=== PATIENT | female | born 1935 | race Caucasian/White ===

== ENCOUNTER → 2019-04-13 09:21 | Outpatient (CLI) | payer MEDICARE, SELFPAY ==
--- NOTE | 2019-04-13 09:29 | RAD_ITS ---
STUDY: X-RAY CHEST REASON FOR EXAM: Female, 83 years old. Dyspnea and wheezing TECHNIQUE: PA and lateral COMPARISON: June 14, 2011 FINDINGS: Mild bilateral perihilar interstitial thickening.. There is focal consolidation in the right middle lobe. There is blunting of the costophrenic angles likely representing pleural thickening although tiny effusions are not excluded Heart is mildly enlarged.. Normal mediastinum and varghese. Normal visualized pulmonary arteries. Tortuous mildly calcified aortic arch and descending thoracic aorta. Dorsal spine demonstrates moderate spondylosis Normal visualized ribs, clavicles, and shoulders. There is no demonstrated abnormality of the visualized soft tissue structures of the upper abdomen. The right middle lobe consolidation is new finding since prior study RAD/Chest PA and Lateral IMPRESSION: Chronic interstitial changes and right middle lobe atelectasis or infiltrate.. Cannot exclude tiny bilateral effusions versus pleural thickening Electronically Signed: Pavan Foster MD at 17:08 EDT , Service support ,
== END ==
PROVIDERS: Family Provider Family Medicine; PCP Family Medicine; Referring Provider Internal Medicine Pulmonary Disease; Visit Provider Internal Medicine Pulmonary Disease
DX: R06.2 Wheezing (principal); R06.00 Dyspnea, unspecified
CPT/HCPCS: 36415; 71046; 83880

== ENCOUNTER → 2019-05-14 05:58 | Outpatient (CLI) | payer MEDICARE, SELFPAY ==
[2019-05-04 11:26] VITALS: BMI 32.5
--- NOTE | 2019-05-15 13:56 | STRESSREP_ITS ---
Stress Test Report Date: 05/14/2019 Procedure: Pharmacologic stress nuclear imaging study Indications: LV dysfunction Consent: Per the patient Procedure: The patient underwent pharmacologic (Regadenoson) evaluation with a peak heart rate of 99 beats per minute (72 %predicted maximal heart rate) and a peak blood pressure of 108/58 mmHg. The baseline ECG demonstrated sinus rhythm. EKG during lexiscan infusion revealed no significant change from baseline. EKG post infusion revealed difficult change from baseline [There were no cardiac dysrhythmias pretest, during pharmacologic infusion, or recovery]. [There was no complaint of chest discomfort during pharmacologic infusion or recovery]. The examination was discontinued secondary to completion of protocol. Impression: 1. Lexiscan stress test test is negative for Lexiscan infusion induced EKG changes of ischemia. 2. Lexiscan stress test test is negative for Lexiscan infusion induced chest pain. 3. Results of the nuclear portion of the test is as below Myocardial perfusion imaging study: Technique: The patient was injected with 10 millicuries of technetium 99m Cardiolite and subsequently rest SPECT Cardiolite nuclear imaging was obtained in the horizontal long, vertical long, and short axis views. The patient underwent pharmacologic (Regadenoson) evaluation. Please see above for details. The patient was injected with the millicuries of technetium 99m Cardiolite and subsequently stress SPECT Cardiolite nuclear imaging was obtained in the horizontal long, vertical long, and short axis views. A gated Cardiolite study at peak stress was obtained. Interpretation: Rest and stress SPECT Cardiolite nuclear imaging status post realignment, normalization, and attenuation correction demonstrate mild decrease in the radioisotope uptake in the apex on both the rest and stress images. There is no significant reversibility suggestive of ischemia. Gated images reveal global hypokinesis. The reported LVEF is 29 %. Impression: 1. There is no evidence of significant ischemia. 2. Estimated ejection fraction is 29%. This note was generated with [employer] software. It may contain incorrect words, spelling, and punctuation that were not noted in checking the note before signing.
== END ==
PROVIDERS: Family Provider Family Medicine; PCP Family Medicine; Referring Provider Specialist; Visit Provider Specialist
DX: I50.22 Chronic systolic (congestive) heart failure (principal)
CPT/HCPCS: 78452; 93017; A9500; A4216; J2785

== ENCOUNTER → 2019-08-11 08:49 | Outpatient (CLI) | payer MEDICARE, SELFPAY ==
[2019-06-09 10:55] VITALS: BMI 33.6
--- NOTE | 2019-08-11 08:51 | ECHOD_ITS ---
Reason For Study: CHF Procedure This was a 2D Doppler, Color Flow transthoracic echocardiogram. Exam performed in department. Left Ventricle Moderately dilated left ventricle. The estimated ejection fraction is 15 %. There is evidence of diastolic dysfunction. There is severe global hypokinesis of the left ventricle. Right Ventricle Normal RV size. Normal systolic function. Atria The left atrium is severely enlarged. Normal right atrium. No doppler evidence for ASD. Mitral Valve There is no mitral valve stenosis. Trivial mitral valve insufficiency. Tricuspid Valve There is no tricuspid stenosis. Unable to estimate RV systolic pressure due to insufficient tricuspid regurgitant envelope. Aortic Valve Trisinus/trileaflet aortic valve. There is no aortic stenosis. Trivial aortic valve insufficiency. Pulmonic Valve There is no pulmonic valvular stenosis. Trivial pulmonic valve insufficiency identified. Great Vessels Normal aortic root. Pericardium/Pleural No pericardial effusion. MMode/2D Measurements & Calculations LVIDd: 7.6 cm IVSd: 1.2 cm Ao root diam: 3.2 cm LVIDs: 6.9 cm LVPWd: 1.2 cm RVDd: 3.8 cm FS: 9.3 % LAV(MOD-bp): 110.6 ml EDV(MOD-sp4): 161.0 ml EDV(MOD-sp2): 236.0 ml LAV(MOD-bp) Indexed: 57.1 ml/m2 ESV(MOD-sp4): 127.8 ml EF(MOD-sp2): 22.3 % LAV(MOD-sp2): 104.8 ml EF(MOD-sp4): 20.6 % LAV(MOD-sp4): 107.5 ml SV(MOD-sp4): 33.2 ml SV(MOD-sp2): 52.7 ml LA A4 area: 27.0 cm2 LA dimension(2D): 5.1 cm RA A4 area: 13.8 cm2 Time Measurements MV dec time: 0.11 sec Doppler Measurements & Calculations MV E max ellen: 92.0 cm/sec Ao V2 max: 155.5 cm/sec AI max ellen: 397.0 cm/sec MV A max ellen: 67.2 cm/sec Ao max P.7 mmHg AI max P.0 mmHg MV E/A: 1.4 Ao V2 mean: 115.0 cm/sec Ao mean P.7 mmHg AI dec slope: 319.0 cm/sec2 Ao V2 VTI: 28.1 cm AI P1/2t: 364.5 msec LV V1 max: 81.5 cm/sec MR max ellen: 489.9 cm/sec PA V2 max: 80.6 cm/sec LV V1 max P.7 mmHg MR max P.0 mmHg LV V1 mean P.5 mmHg LV V1 mean: 58.1 cm/sec LV V1 VTI: 13.3 cm Interpretation Summary Moderately dilated left ventricle. The estimated ejection fraction is 15 %. There is evidence of diastolic dysfunction. There is severe global hypokinesis of the left ventricle. The left atrium is severely enlarged. Trivial mitral valve insufficiency. Trivial aortic valve insufficiency. Trivial pulmonic valve insufficiency identified. Ordering Physician: Elodia Hunt Referring Physician: Sj Guan Performed By: Shobha Schmidt RDCS, RVT
== END ==
PROVIDERS: Family Provider Family Medicine; PCP Family Medicine; Referring Provider Specialist; Visit Provider Specialist
DX: I25.10 Atherosclerotic heart disease of native coronary artery without angina pectoris (principal); I50.9 Heart failure, unspecified
CPT/HCPCS: 93306

== ENCOUNTER → 2019-10-01 15:00 | Outpatient (CLI) | payer MEDICARE, SELFPAY ==
[2019-09-08 10:53] VITALS: BMI 33.5
[2019-10-01 15:09] LABS: Bacteria 0 SEEN /hpf (None Seen); Mucous, Urine 0 SEEN /hpf (<or=2+); White Blood Cells 0 SEEN /hpf (0-5)
[2019-10-01 15:28] LABS: Hematocrit 43.3 % (37-47); Hemoglobin 13.9 g/dL (12.0-15.0); Mean Corp Hgb Conc 32.1 g/dL (32-36); Mean Corpuscular Hgb 28.4 pg (27.0-32.0); Mean Corpuscular Volume 88.5 fL (81-99); Platelet Count 190 K/mm3 (150-450); RBC Distribution Width CV 13.2 % (11.6-14.6); RBC Distribution Width SD 43.1 fl (35.1-43.9); Red Blood Count 4.89 M/mm3 (4.2-5.4); White Blood Count 7.5 K/mm3 (4.4-11.0)
[2019-10-01 15:39] LABS: Color, Urine Yellow (Yellow); Glucose, Dipstick Normal (Normal); Ketone-Dipstick Negative (Negative); Leukocyte Esterase-Dipstick Negative /ul (Negative); Nitrite-Dipstick Negative (Negative); Occult Blood-Urine Negative /ul (Negative); Protein-Dipstick Negative (Negative); Urine Bilirubin Dipstick Negative (Negative); Urine Clarity Clear (Clear); Urine Urobilinogen Normal (Normal)
[2019-10-01 15:45] LABS: Prothrombin Time (Protime)PT. 13.4 SECONDS (11.7-14.9)
[2019-10-01 16:16] LABS: Anion Gap 7 (5-15); BUN 17 mg/dL (7-18); BUN/Creat Ratio 18.3 RATIO (10-20); Chloride 100 mmol/L (98-107); Creatinine, Serum 0.93 mg/dL (0.55-1.02); EST Glomerular Filtration Rate 61 mL/min (>60); Est Glom Filt Rate - Afr Amer 74 mL/min (>60); Glucose 105 mg/dL (74-106); Potassium 3.8 mmol/L (3.5-5.1); Sodium Level 134 mmol/L (136-145)
[2019-10-01 16:23] LABS: Squamous Epithelial Cells - UA 0-5 SEEN /hpf (5-10)
[2019-10-01 16:24] LABS: Red Blood Cells-Urine 0-5 SEEN /hpf (0-5)
[2019-10-01 16:26] LABS: Renal Epithelial Cells 0-5 SEEN /hpf (0-5)
== END ==
PROVIDERS: PCP Family Medicine; Referring Provider Specialist; Visit Provider Specialist
DX: I50.9 Heart failure, unspecified (principal); I42.8 Other cardiomyopathies
CPT/HCPCS: 36415; 80048; 81001; 85027; 85610

== ENCOUNTER 2019-10-15 12:14 | Day surgery (SDC) | payer MEDICARE, SELFPAY ==
[2019-09-08 10:53] VITALS: BMI 33.5
[2019-10-14 07:13] VITALS: BMI 33.5
[2019-10-15] VITALS (12 sets, daily range): BP systolic 99–127; BP diastolic 62–82; PULSE 87–103; RESP 16–18; TEMP 36.5–36.8; O2SAT 93–97; BMI 33.5
--- NOTE | 2019-10-15 12:46 | PCM.HP.BLA ---
History and Physical Date of Admission: 10/15/19 Details: 05/04/2019: 83-year-old female with past medical history of nonischemic cardiomyopathy with an ejection fraction of around 20% in 2010 with a heart cath at [facility] showing 50% stenosis in large dominant RCA with a subsequent stress test revealing no evidence of ischemia in this territory referred to us for management of her heart failure. Patient has been having dyspnea on exertion for a long time. Her Coreg was increased to 6.25 but this led to dizziness and now she is back to 3.125 mill grams p.o. twice daily of Coreg. She takes Lasix 80 mg p.o. daily on some days and 160 mg p.o. daily on other days. She also has history of COPD and sees Dr. East for that. 06/09/2019: Patient is stable. She does not have significant shortness of breath. She does have occasional episodes of orthostatic dizziness. She had a stress test which revealed no evidence of ischemia. Ejection fraction was 29%. 09/08/2019: Patient is stable from a cardiac standpoint. She occasionally gets episodes of chest pain which appear to be nonanginal. She is able to ambulate with a cane and does not have significant chest pain every time she ambulates. Her repeat 2D echo revealed an EF of around 15%. 10/15/2019: Pt is here today to have a prophylactic ICD placed. She is stable. Intake Intake Visit Reasons: Amb Documentation Allergies azithromycin [From Zithromax] Allergy (Intermediate, Verified 09/08/19 10:58) Diarrhea codeine Allergy (Intermediate, Verified 09/08/19 10:58) Unknown [facility] Medical History Nonischemic cardiomyopathy (Chronic) Atherosclerosis of coronary artery of [place] heart without angina pectoris (Chronic) CHF (congestive heart failure) (Chronic) Asthma (Chronic) GERD (gastroesophageal reflux disease) (Chronic) Wears hearing aid (Chronic) Surgical History History of arthroscopic knee surgery (Resolved) History of section (Resolved) History of hand surgery (Resolved) History of open reduction and internal fixation (ORIF) procedure (Resolved) Family History Father Heart disease Social History Smoking Status: Never smoker alcohol intake: never substance use type: does not use caffeine: Yes Type: coffee Number of servings: 2 ROS Const Const: Positive for fatigue and weakness; negative for headache(s), frequent falls, difficulty sleeping or excessive sweating Eyes Eyes: Negative for loss of peripheral vision, transient loss of vision, blurry vision, double vision or tunnel vision ENT ENT: Negative for headache(s) or balance problems Cardio Chest Pain: Yes Character: squeezing, other (just hurts) Onset: other (randomly) Location: left chest Duration: minutes Palpitations: No Edema: Bilateral (only if she is late taking lasix) Muscle aches with walking: None Resp Respiratory: Positive for SOB with activity; negative for SOB at rest, SOB orthopnea\SOB lying down, Cough or paroxysmal nocturnal dyspnea GI GI: Negative nausea, vomiting, heartburn or black,tarry stools : Negative for hematuria Musc Musc: Negative for muscle aches/ myalgia, muscle weakness, joint pain or balance problems Skin Skin: Negative non-healing lesions, rash or unusual bruising Neuro Neuro: Positive for weakness; negative for frequent falls, headache(s), blurry vision or double vision Emmanuel Hematologic/Lymphatic: Negative for easy bleeding or easy bruising Endo Endo: Positive for fatigue; negative for excessive sweating Psych Psych: Negative for anxiety or depression Allergy Allergy/Immunology: Negative for rash Cardiology Exam Const Appearance: cooperative; negative acute distress Nutritional Appearance: well nourished Head Head: normocephalic and atraumatic Ears: hearing grossly normal bilaterally Nose: external nose normal Face and Sinus: face symmetric Mouth: moist mucous membranes Teeth and gingiva: fair dentition Eyes General: appearance normal, both eyes and all related structures Eyelids: eyelids normal Conjunctivae: conjunctivae normal Neck Neck: trachea midline and no JVD Chest Chest inspection: symmetric chest movement; negative pursed lip breathing Auscultation: Bilateral: Clear to Auscultation Cardio Rate: regular rate Rhythm: regular rhythm Heart sounds: S1 normal and S2 normal No Murmurs GI GI: normal to inspection Neuro General: alert, awake and oriented x3 Gait: Negative ataxic Skin Skin: no rashes or lesions noted; negative atrophy or jaundice Extremities Pulses: Normal: Right Posterior Tibial Pulse, Left Posterior Tibial Pulse Lower Extremity Edema: None: Bilateral Musculoskel Musculoskeletal: No joint tenderness Psych Psychological: normal affect Assessment & Plan 1. Atherosclerosis of [place] coronary artery of [place] heart without angina pectoris I25.10 05/04/2019: 50% stenosis in a large dominant RCA. Stress test at that time was negative for ischemia. At next visit we will consider statin. Plan Stable, from a cardiac standpoint patient does not have any symptoms of angina. We recommend that they continue with current aggressive medical management and risk factor modification. 2. Nonischemic cardiomyopathy I42.8 Plan Pt will continue with her coreg, losartan and ASA. She is undergoing an ICD placement today. She will follow up in our office after. A SDM interaction occurred at this visit using an SDM tool prior to initial implant of ICD.
--- NOTE | 2019-10-15 15:19 | CHAPLAIN ---
this bundling machine operator was notified by staff that patient was requesting spiritual care support and prayer before her procedure; met with son and patient and gave such support as requested
--- NOTE | 2019-10-15 15:24 | PCM.OPRPT ---
Report of Operation Date of Procedure: 10/15/19 Description of Procedure: Preoperative diagnosis implantation of primaryt prevention VVI ICD for Nonischecmic CM EF15% andNYHA Class III Postoperative diagnosis same as above After informed consent and IV antibiotics the patient was brought to the [place] catheterization laboratory. The left side of the chest was prepped and draped in the usual sterile manner. The patient was sedated with intermittent boluses of IV Versed fentanyl and propofol as well as subcutaneous 1% lidocaine. An incision was made inferior to the clavicle to accommodate the size of the hardware device. The pocket was created using blunt and Bovie dissection. Hemostasis was obtained. Using the Seldinger technique the axillary vein was cannulated once and a guidewire was advanced under fluoroscopic guidance. Over the guidewire a sheath was advanced. Through this sheath, the electrode was positioned under fluoroscopic guidance into the right ventricle and was actively fixated. Once actively fixated, the lead was tested to check for proper sensing, capture threshold, impedance and to exclude diaphragmatic stimulation. Once the lead was implanted and all electrical parameters were confirmed to be functioning normally with appropriate values, the leads was then sutured to the pectoralis muscle with 2-0 silk on the Silastic collar ?2. The sponge and needle count were correct. Hemostasis was obtained. Antibiotic solution was used to flush the pocket. The new device was brought to the field. The lead was placed in the appropriate position of the header of the device and were secured by the setscrews and confirmed by the tug test. The device and the leads were then placed in the pocket. Pocket was closed with a deep layer of running 2-0 Vicryl, superficial layer of running 4-0 Vicryl and skin with Steri-Strips that were covered with a rolled 4 x 4's and Tegaderm. The patient left the lab with the device programmed to chronic parameters. There were no complications. The device is a VVI [employer] ICD Lead and device serial and model numbers are available in the chart documents provided by the device company sales representative groceries procedure summary.
--- NOTE | 2019-10-15 18:02 | RAD_ITS ---
STUDY: X-RAY CHEST REASON FOR EXAM: Female, 84 years old. Post ICD insert TECHNIQUE: Single frontal view of the chest. COMPARISON: 04/13/2019. FINDINGS: Cardiac silhouette is increased in size mildly. Pulmonary vascularity mildly increased. Aorta unremarkable. Left-sided cardiac device. No focal airspace opacities. No pleural effusions. Upper abdomen unremarkable. Osseous structures intact. No pneumothorax. RAD/Chest 1 View (Portable) IMPRESSION: Mild cardiomegaly and pulmonary vascular congestion. No focal consolidation. No pneumothorax. Electronically Signed: Keaton Flores, at 18:38 EDT Tel , Service support ,
[2019-10-15] MEDS: Budesonide Respules 0.5 MG/2 ML AMPUL.NEB. INHALATION (19:16)
[2019-10-15] MEDS: Albuterol 2.5 MG/3 ML VIAL.NEB. INHALATION (19:17)
[2019-10-15] MEDS: Acetaminophen 325 MG Tablet PO (20:08)
[2019-10-15] MEDS: Carvedilol 3.125 MG TABLET PO (21:46)
[2019-10-15] MEDS: Aspirin E.C. 81 MG Tablet PO (21:46)
[2019-10-16 01:50] VITALS: BP 101/69; PULSE 92; RESP 18; TEMP 36.5; O2SAT 94
[2019-10-16 03:00] VITALS: PULSE 89
--- NOTE | 2019-10-16 05:55 | RAD_ITS ---
STUDY: X-RAY CHEST REASON FOR EXAM: Female, 84 years old. Status post placement of cardiac device with chest discomfort. TECHNIQUE: PA and lateral, and inspiration and expiration. COMPARISON: 10/15/2019 CXR FINDINGS: Implanted cardiac device left chest with a single lead extending into the right ventricle, unchanged. No evidence of pneumonia, pulmonary edema, pneumothorax or pleural effusion. Cardiac silhouette, hilar and mediastinal contours with no acute findings. Mild cardiomegaly. Atherosclerosis of the thoracic aorta. Degenerative osseous changes with no acute osseous abnormality. RAD/Chest 3 View IMPRESSION: No acute findings. Implanted cardiac device in place with no apparent complication. Electronically Signed: Anish Rutherford, at 7:26 EDT Tel , Service support ,
[2019-10-16 06:26] VITALS: BP 120/76; PULSE 84; RESP 18; TEMP 36.4; O2SAT 94
[2019-10-16 06:29] LABS: Anion Gap 7 (5-15); BUN 23 mg/dL (7-18); BUN/Creat Ratio 27.1 RATIO (10-20); Calcium,Total 8.5 mg/dL (8.5-10.1); Chloride 105 mmol/L (98-107); Creatinine, Serum 0.85 mg/dL (0.55-1.02); EST Glomerular Filtration Rate 68 mL/min (>60); Est Glom Filt Rate - Afr Amer 82 mL/min (>60); Estimated Creatinine Clearance 42.54 ml/min; Glucose 94 mg/dL (74-106); Potassium 4.1 mmol/L (3.5-5.1); Sodium Level 136 mmol/L (136-145)
[2019-10-16 07:00] VITALS: PULSE 86
[2019-10-16 07:01] VITALS: PULSE 88; RESP 16; O2SAT 95
[2019-10-16] MEDS: Albuterol 2.5 MG/3 ML VIAL.NEB. INHALATION (07:01)
[2019-10-16] MEDS: Budesonide Respules 0.5 MG/2 ML AMPUL.NEB. INHALATION (07:01)
[2019-10-16] MEDS: Losartan Potassium 25 MG Tablet PO (08:50)
[2019-10-16] MEDS: Aspirin E.C. 81 MG Tablet PO (08:50)
[2019-10-16] MEDS: Furosemide 80 MG Tablet PO (08:50)
[2019-10-16] MEDS: Carvedilol 3.125 MG TABLET PO (08:50)
[2019-10-16 08:54] VITALS: BP 114/56
[2019-10-16] MEDS: Pantoprazole Sodium 20 MG Tablet PO (08:57)
--- NOTE | 2019-10-16 09:09 | DCINST_ITS ---
Discharge Activity: May Drive - for at least 4 weeks or until your doctor says you may drive. May shower in (days): 2 - follow the d/c instructions given to you Lifting Restrictions: 10 pounds Additional Activity Instructions:: Avoid raising the arm on the device implanted side over your head for 4 weeks following the procedure. Keep the arm sling on if it helps remind you not to lift your arm. No excessive stretching. Call your doctor if your incision/area has: Continuous Slow Oozing, Sudden Increased Bleeding, Increased Pain/ Swelling, Increased Redness, Foul Smelling Discharge, Swelling at the incision site, - - A pimple that develops along the incision. A dark or light colored thread (suture) along the incision. Call your doctor if you observe: Fever of 101 or Higher - and you do not have a cold or the flu., Change in Color - or significant swelling of the hand and arm on the ICD implanted side., Shortness of breath, Dizziness, Fainting spells, Swelling in the ankles, Chest pain Remove Dressing in (days):: 2 - Remove the large outer bandage 48 hours after your procedure. Do not remove the narrow white tapes (steri strips) which are over the incision. They will fall off on their own. Additional Dressing/Incision Instructions:: Follow the d/c instructions given to you for ICD/Pacemaker Additional Instructions: DO NOT HAVE AN MRI TEST. An MRI may damage or reprogram your ICD to a mode which is not safe. WHAT TO DO IF YOU RECEIVE A SHOCK FROM YOUR ICD. IF YOU RECEIVE A SHOCK FROM YOUR ICD, DO NOT, UNDER ANY CIRCUMSTANCES, DRIVE UNTIL YOUR ICD HAS BEEN EVALUATED and/or YOUR DOCTOR SAYS YOU MAY DRIVE. Call 911 if necessary to take you to the nearest Emergency Department. IF you receive a shock from your ICD and feel that your heart rhythm is back to normal and you do not feel short of breath, lightheaded, or have any chest discomfort, it is not necessary for you to go to the hospital or call 911. You should sit down and call your doctor the next day the office is open. IF you receive more than one shock from the ICD in a day, you should call 911 and go to the nearest Emergency Department to be seen by a doctor. IF your ICD shocks you more than once within a minute or you continue to feel lightheaded, short of breath, or have chest discomfort, you should call 911 immediately. If you become unconscious and your ICD has not been able to put your heart back into rhythm, someone should call 911 and start CPR. CPR should continue until the rescue squad arrives. IF the ICD fires while someone is giving you CPR, they may feel a slight shock sensation; this is not harmful to them. If at any time you are uncertain about what to do following a shock from your ICD, call 911. Allergies/Adverse Reactions: Allergies azithromycin [From Zithromax] Allergy (Intermediate, Verified 09/08/19 10:58) Diarrhea codeine Allergy (Intermediate, Verified 09/08/19 10:58) Unknown Medications to take at Discharge albuterol sulfate 90 mcg/actuation aerosol inhaler 2 puff INHALATION Q6H PRN 05/04/19 aspirin 81 mg tablet,delayed release 81 mg PO BID tab 05/04/19 carvedilol 3.125 mg tablet 3.125 mg PO BID 05/04/19 fluticasone 250 mcg-salmeterol 50 mcg/dose blistr powdr for inhalation 1 inh INHALATION BID 05/04/19 losartan 25 mg tablet 25 mg PO DAILY 05/04/19 omeprazole 20 mg capsule,delayed release 20 mg PO DAILY 05/04/19 furosemide 80 mg tablet 80 mg PO QAM #30 tab 06/09/19 albuterol sulfate 1.25 mg/3 mL solution for nebulization 1.25 mg INHALATION Q6H PRN ml 09/08/19 Primary Care Physician: Sj Guan [Primary Care Provider] - Test Results: Test results from this visit will be discussed in further detail at your follow- up appointment, if applicable. Please Follow Up With: [facility] When: 10/22 at 2pm
--- NOTE | 2019-10-16 10:00 | PHA.DC.MR ---
Pharmacy Service has performed discharge medication reconciliation for this patient. The patient's discharge medication list was reviewed for discrepancies and discrepancies were resolved. Home Medications albuterol sulfate 90 mcg/actuation aerosol inhaler 2 puff INHALATION Q6H PRN 05/04/19 aspirin 81 mg tablet,delayed release 81 mg PO BID tab 05/04/19 carvedilol 3.125 mg tablet 3.125 mg PO BID 05/04/19 fluticasone 250 mcg-salmeterol 50 mcg/dose blistr powdr for inhalation 1 inh INHALATION BID 05/04/19 losartan 25 mg tablet 25 mg PO DAILY 05/04/19 omeprazole 20 mg capsule,delayed release 20 mg PO DAILY 05/04/19 furosemide 80 mg tablet 80 mg PO QAM #30 tab 06/09/19 albuterol sulfate 1.25 mg/3 mL solution for nebulization 1.25 mg INHALATION Q6H PRN ml 09/08/19
== END 2019-10-16 09:50 | disposition home or self-care (01) ==
LOC: CLSP 12:19 → PCU 15:45
PROVIDERS: PCP Family Medicine; Referring Provider Internal Medicine Cardiovascular Disease; Visit Provider Internal Medicine Cardiovascular Disease
DX: Z45.02 Encounter for adjustment and management of automatic implantable cardiac defibrillator (principal); I25.10 Atherosclerotic heart disease of native coronary artery without angina pectoris; I42.8 Other cardiomyopathies; I50.9 Heart failure, unspecified; K21.9 Gastro-esophageal reflux disease without esophagitis; J45.909 Unspecified asthma, uncomplicated; Z79.82 Long term (current) use of aspirin; Z79.899 Other long term (current) drug therapy
CPT/HCPCS: 33249; 36415; 71045; 71047; 80048; 93641; 94640; 99152; 99153; J7040; J7050; A4216; C1894

== ENCOUNTER 2019-12-22 08:10 | Emergency (ER) | payer MEDICARE, SELFPAY ==
[2019-12-22] VITALS (7 sets, daily range): BP systolic 135–137; BP diastolic 53–103; PULSE 89–107; RESP 14–20; TEMP 36.1–36.4; O2SAT 94–96; BMI 31.7
--- NOTE | 2019-12-22 08:32 | RAD_ITS ---
STUDY: X-RAY CHEST REASON FOR EXAM: Female, 84 years old. CHEST PAIN TECHNIQUE: Single AP portable view of the chest. COMPARISON: October 16, 2019. FINDINGS: Left-sided cardiac device in position. Cardiomegaly. Pulmonary vascularity unremarkable. Aorta calcified. No focal patchy airspace opacities. No pleural effusions. Coarse lung markings with COPD. Upper abdomen unremarkable. Osseous structures are demineralized with degenerative features. No pneumothorax. RAD/Chest 1 View (Portable) IMPRESSION: No new focal patchy airspace opacities or effusions Cardiomegaly cardiothoracic device COPD with coarse lung markings Electronically Signed: Antonio Contreras DO at 9:39 EDT Tel , Service support ,
--- NOTE | 2019-12-22 08:32 | EKG12_ITS ---
Test Reason : SOB Blood Pressure : / mmHG Vent. Rate : 104 BPM Atrial Rate : 104 BPM P-R Int : 166 ms QRS Dur : 104 ms QT Int : 378 ms P-R-T Axes : 082 -38 099 degrees QTc Int : 497 ms Sinus tachycardia Left axis deviation ST & T wave abnormality, consider lateral ischemia Abnormal ECG Confirmed by REBEKAH FELTON ([id number]), editor greeting card RADHA MARKHAM ([id number]) on 12/24/2019 2:33:28 PM Referred By: PHIL Confirmed By:REBEKAH FELTON
[2019-12-22] MEDS: Ipratropium/Albuterol Sulfate 3 ML AMPUL.NEB INHALATION (08:48)
--- NOTE | 2019-12-22 08:55 | ED.DCSUM_ITS ---
- ER Visit Summary Date of Service: 12/22/19 Chief Complaint: Shortness of breath History of Present Illness: The patient is a 84 F with shortness of breath which has increased over the past week. Worse with exertion and walking. Better with rest. No cough, fever, or chest pain. She has a history of asthma and uses inhaler. She is not currently on oxygen, antibiotics, or steroids. She also has a history of cardiomyopathy, CHF, and a defibrillator placed in September of this year. She has been taking Lasix. She denies any swelling. Denies any fever or sputum. Denies any exposure to coronavirus. Physical Examination: Afebrile and vital signs unremarkable except a heart rate of 107. She is lying comfortably in no acute distress, breathing and speaking without difficulty. Lungs are diminished. Heart is tachycardic but regular. Abdomen soft. Extremities show no edema or tenderness. Skin is unremarkable. Test Results: EKG shows sinus rhythm at a rate of 104. Nonspecific ST-T wave changes. Labs and chest x-ray are pending. Emergency Department Course and Treatment: Patient was placed on the monitor. EKG was performed as above. Labs and chest x-ray are pending. Patient was concerned this might be more related to her asthma, so she did receive a breathing treatment. We will also check a BNP given her history. Patient's work-up was fairly unremarkable, stable. She has a BNP of 4679. I ta lked to her in more detail and she is not taking her Lasix regularly because it makes her urinate. She did not take it today. She thinks she took it yesterday, but does not remember taking it before that. She received Lasix here. She ambulated without assistance and was 94 to 96% on room air. I do not suspect this is an acute issue, rather it is likely from medication nonadherence. I spoke to the patient about taking her medications as prescribed. I do not believe she needs hospitalization, and would be concerned that the risks outweigh benefits. She is not currently following up with her PCP because of insurance issues, but still has an established employment training specialist. I spoke with the on-call employment training specialist, and they will help coordinate follow-up with her. She has an appointment next month, but I will advise her to call today to make an appointment sooner for recheck. She should return if worse. Treatment Plan: As above Disposition: Discharge Impression: CHF exacerbation, medication nonadherence This note was generated with [employer] dictation software. It may contain incorrect words, spelling, and punctuation that were not noted in review of the chart prior to signing ED Disposition - Plan for ED Patient: Referrals: Sj Guan MD [Primary Care Provider] -
[2019-12-22 08:58] LABS: Absolute Lymphocyte Count 1.05 X10^3/uL (0.83-4.51); Absolute Neutrophil Count 5.1 X10^3/uL (2.0-7.7); Basophil# 0.06 X10^3/uL; Basophil% 0.9 % (0-1); Eosinophil# 0.08 X10^3/uL; Eosinophils% 1.2 % (0-5); Hematocrit 37.5 % (37-47); Hemoglobin 12.1 g/dL (12.0-15.0); Lymphocyte # 1.05 X10^3/ul (4.0); Lymphocyte % 15.5 % (19-41); Mean Corp Hgb Conc 32.3 g/dL (32-36); Mean Corpuscular Hgb 28.3 pg (27.0-32.0); Mean Corpuscular Volume 87.8 fL (81-99); Mean Platelet Vol. 11.3 fl (6.2-12.0); Monocyte# 0.45 X10^3/uL; Monocyte% 6.6 % (0-10); NRBC Flagged by Analyzer 0 % (0-5); Neutrophil # 5.12 X10^3/uL (2.7-7.7); Neutrophil % 75.5 % (47-70); Platelet Count 174 K/mm3 (150-450); RBC Distribution Width CV 14.1 % (11.6-14.6); RBC Distribution Width SD 44.8 fl (35.1-43.9); Red Blood Count 4.27 M/mm3 (4.2-5.4); White Blood Count 6.8 K/mm3 (4.4-11.0)
[2019-12-22 09:19] LABS: Anion Gap 11 (5-15); BUN 20 mg/dL (7-18); BUN/Creat Ratio 21.5 RATIO (10-20); Calcium,Total 8.9 mg/dL (8.5-10.1); Chloride 102 mmol/L (98-107); Creatinine, Serum 0.93 mg/dL (0.55-1.02); EST Glomerular Filtration Rate 61 mL/min (>60); Est Glom Filt Rate - Afr Amer 74 mL/min (>60); Estimated Creatinine Clearance 38.88 ml/min; Glucose 129 mg/dL (74-106); Sodium Level 136 mmol/L (136-145)
[2019-12-22 09:20] LABS: BNP,B-Type NATRIURETIC PEPTIDE 4679.3 pg/mL (0-100)
[2019-12-22] MEDS: Furosemide 40 MG/4 ML Vial IV (09:36)
--- NOTE | 2019-12-22 10:16 | ED.DEP ---
ED Disposition - Plan for ED Patient: Instructions: ED CHF General Referrals: Elodia Hunt MD [STAFF PHYSICIAN] - As soon as possible
== END 2019-12-22 10:38 | disposition home or self-care (01) ==
PROVIDERS: Emergency Provider Emergency Medicine
DX: I50.9 Heart failure, unspecified (principal); Z91.14 Patient's other noncompliance with medication regimen; J45.909 Unspecified asthma, uncomplicated; I42.9 Cardiomyopathy, unspecified; I25.10 Atherosclerotic heart disease of native coronary artery without angina pectoris; K21.9 Gastro-esophageal reflux disease without esophagitis; Z95.810 Presence of automatic (implantable) cardiac defibrillator; Z79.899 Other long term (current) drug therapy
CPT/HCPCS: 71045; 80048; 83880; 84484; 85025; 93005; 94640; 96374; 99284; A4216; J1940

== ENCOUNTER → 2020-01-01 10:22 | Outpatient (CLI) | payer MEDICARE, SELFPAY ==
[2019-12-24 11:09] VITALS: BMI 31.7
[2020-01-01 11:45] LABS: Anion Gap 7 (5-15); BUN 23 mg/dL (7-18); BUN/Creat Ratio 25.1 RATIO (10-20); Chloride 100 mmol/L (98-107); Creatinine, Serum 0.92 mg/dL (0.55-1.02); EST Glomerular Filtration Rate 62 mL/min (>60); Est Glom Filt Rate - Afr Amer 75 mL/min (>60); Glucose 95 mg/dL (74-106); Potassium 3.8 mmol/L (3.5-5.1); Sodium Level 135 mmol/L (136-145)
== END ==
PROVIDERS: Referring Provider Specialist; Visit Provider Specialist
DX: I25.10 Atherosclerotic heart disease of native coronary artery without angina pectoris (principal); I42.8 Other cardiomyopathies; I50.9 Heart failure, unspecified; R42 Dizziness and giddiness; Z95.810 Presence of automatic (implantable) cardiac defibrillator
CPT/HCPCS: 36415; 80048

== ENCOUNTER → 2020-02-04 12:21 | Outpatient (CLI) | payer MEDICARE, SELFPAY ==
[2020-01-12 13:05] VITALS: BMI 30.9
[2020-02-04 12:47] LABS: Absolute Lymphocyte Count 2.54 X10^3/uL (0.83-4.51); Absolute Neutrophil Count 4.8 X10^3/uL (2.0-7.7); Basophil# 0.07 X10^3/uL; Basophil% 0.8 % (0-1); Eosinophil# 0.32 X10^3/uL; Eosinophils% 3.8 % (0-5); Hematocrit 40.6 % (37-47); Hemoglobin 12.9 g/dL (12.0-15.0); Lymphocyte # 2.54 X10^3/ul (4.0); Lymphocyte % 30.1 % (19-41); Mean Corp Hgb Conc 31.8 g/dL (32-36); Mean Corpuscular Hgb 28.5 pg (27.0-32.0); Mean Corpuscular Volume 89.8 fL (81-99); Monocyte# 0.72 X10^3/uL; Monocyte% 8.5 % (0-10); NRBC Flagged by Analyzer 0 % (0-5); Neutrophil # 4.77 X10^3/uL (2.7-7.7); Neutrophil % 56.6 % (47-70); Platelet Count 206 K/mm3 (150-450); RBC Distribution Width CV 14.1 % (11.6-14.6); RBC Distribution Width SD 45.7 fl (35.1-43.9); Red Blood Count 4.52 M/mm3 (4.2-5.4); White Blood Count 8.4 K/mm3 (4.4-11.0)
[2020-02-04 13:22] LABS: Anion Gap 7 (5-15); BUN 22 mg/dL (7-18); BUN/Creat Ratio 23.2 RATIO (10-20); Calcium,Total 8.8 mg/dL (8.5-10.1); Chloride 99 mmol/L (98-107); Creatinine, Serum 0.95 mg/dL (0.55-1.02); EST Glomerular Filtration Rate 60 mL/min (>60); Est Glom Filt Rate - Afr Amer 72 mL/min (>60); Glucose 106 mg/dL (74-106); Potassium 4.2 mmol/L (3.5-5.1); Sodium Level 133 mmol/L (136-145)
== END ==
PROVIDERS: Referring Provider Specialist; Visit Provider Specialist
DX: I42.8 Other cardiomyopathies (principal); R42 Dizziness and giddiness; I25.10 Atherosclerotic heart disease of native coronary artery without angina pectoris; I50.9 Heart failure, unspecified
CPT/HCPCS: 36415; 80048; 85025

== ENCOUNTER → 2020-12-22 13:57 | Outpatient (CLI) | payer MEDICARE, SELFPAY ==
[2020-12-22 13:22] VITALS: BMI 29.0
[2020-12-22 14:54] LABS: Hematocrit 40.9 % (37-47); Mean Corp Hgb Conc 31.8 g/dL (32-36); Mean Corpuscular Hgb 29.2 pg (27.0-32.0); Mean Corpuscular Volume 91.9 fL (81-99); Mean Platelet Vol. 11.1 fl (6.2-12.0); Platelet Count 200 K/mm3 (150-450); RBC Distribution Width SD 43.9 fl (35.1-43.9); Red Blood Count 4.45 M/mm3 (4.2-5.4); White Blood Count 6.8 K/mm3 (4.4-11.0)
[2020-12-22 16:04] LABS: AST(SGOT) 15 U/L (15-37); Alanine Aminotransfer ALT/SGPT 17 U/L (13-56); Albumin, Serum 3.8 g/dL (3.2-5.0); Alkaline Phosphatase 131 U/L (45-117); Anion Gap 8 (5-15); BUN 22 mg/dL (7-18); BUN/Creat Ratio 20.6 RATIO (10-20); Calcium,Total 8.9 mg/dL (8.5-10.1); Chloride 98 mmol/L (98-107); Creatinine, Serum 1.07 mg/dL (0.55-1.02); EST Glomerular Filtration Rate 52 mL/min (>60); Est Glom Filt Rate - Afr Amer 63 mL/min (>60); Globulin 3.7 g/dL (2.2-4.2); Glucose 98 mg/dL (74-106); Magnesium 2.3 mg/dL (1.6-2.6); Potassium 3.6 mmol/L (3.5-5.1); Protein, Total 7.5 g/dL (6.4-8.2); Sodium Level 136 mmol/L (136-145)
== END ==
PROVIDERS: PCP Family Medicine; Referring Provider Physician Assistant Medical; Visit Provider Physician Assistant Medical
DX: I25.10 Atherosclerotic heart disease of native coronary artery without angina pectoris (principal); I42.8 Other cardiomyopathies; Z95.810 Presence of automatic (implantable) cardiac defibrillator
CPT/HCPCS: 36415; 80053; 83735; 85027

== ENCOUNTER 2021-10-24 10:58 | Outpatient (CLI) | payer MEDICARE, SELFPAY ==
--- NOTE | 2021-10-24 11:03 | ECHOD_ITS ---
Reason For Study: DYSPNEA/SOB Procedure This was a 2D Doppler, Color Flow transthoracic echocardiogram. The study was technically difficult. Exam performed in department. Left Ventricle Normal LV size. Moderate concentric left ventricular hypertrophy. The estimated ejection fraction is 20 %. There is severe global hypokinesis of the left ventricle. Right Ventricle Normal RV size. ICD or pacer leads identified within the right ventricle. Normal systolic function. Atria Normal left atrium. Normal right atrium. Mitral Valve Normal mitral valve. Tricuspid Valve Normal tricuspid valve. Aortic Valve Trisinus/trileaflet aortic valve. Trivial eccentric aortic valve insufficiency. Pulmonic Valve Normal pulmonic valve. Great Vessels Calcified aortic root. The pulmonary artery is normal size. Normal inferior vena cava. Pericardium/Pleural No pericardial effusion. MMode/2D Measurements & Calculations LVIDd: 5.3 cm IVSd: 1.3 cm LVOT diam: 2.0 cm LVIDs: 4.6 cm LVPWd: 1.4 cm LVOT area: 3.1 cm2 RVDd: 3.5 cm FS: 14.6 % Ao root diam: 3.2 cm LAV(MOD-bp): 43.9 ml LVAd ap4: 38.6 cm2 LAV(MOD-bp) Indexed: 24.7 ml/m2 LVLd ap4: 8.1 cm LAV(MOD-sp2): 44.8 ml EDV(MOD-sp4): 151.1 ml LAV(MOD-sp4): 38.3 ml EDV(sp4-el): 156.9 ml LVAs ap4: 34.5 cm2 LVLs ap4: 7.9 cm ESV(MOD-sp4): 126.0 ml ESV(sp4-el): 128.9 ml EF(MOD-sp4): 16.6 % EF(sp4-el): 17.9 % SV(MOD-sp4): 25.1 ml SV(sp4-el): 28.0 ml LA A4 area: 14.5 cm2 LA dimension(2D): 4.1 cm RA A4 area: 13.1 cm2 Time Measurements MV dec time: 0.35 sec Doppler Measurements & Calculations MV E max paul: 40.1 cm/sec Lat Peak E' Paul: 5.9 cm/sec Med Peak E' Paul: 3.2 cm/sec MV A max paul: 87.6 cm/sec E/E' lat: 6.7 E/E' med: 12.4 MV E/A: 0.46 Ao V2 max: 162.8 cm/sec AI max paul: 367.3 cm/sec LV V1 max: 95.2 cm/sec Ao max P.6 mmHg AI max P.0 mmHg LV V1 max P.6 mmHg NU(V,D): 1.8 cm2 AI dec slope: 170.7 cm/sec2 AI P1/2t: 630.0 msec PA V2 max: 71.2 cm/sec ECHO/Echo Complete Interpretation Summary Normal LV size. Moderate concentric left ventricular hypertrophy. The estimated ejection fraction is 20 %. There is severe global hypokinesis of the left ventricle. Compared to previous study, the left ventricular systolic function is the same. . Ordering Physician: González Britton Referring Physician: PATIENCE SERRANO Performed By: Jacquelin Gibson RDCS
== END 2021-10-24 23:59 | disposition home or self-care (01) ==
LOC: CVS 11:01
PROVIDERS: PCP Family Medicine; Referring Provider Internal Medicine Cardiovascular Disease; Visit Provider Internal Medicine Cardiovascular Disease
DX: I42.8 Other cardiomyopathies (principal); R06.02 Shortness of breath
CPT/HCPCS: 93306

== ENCOUNTER → 2023-04-17 | Outpatient (CLI) | payer MEDICARE, SELFPAY | END | disposition home or self-care (01) | LOC: LABSPEC 15:14 | PROVIDERS: PCP Family Medicine; Referring Provider Internal Medicine Pulmonary Disease; Visit Provider Internal Medicine Pulmonary Disease | DX: R05.9 Cough, unspecified (principal) | CPT/HCPCS: 87070; 87077; 87186; 87205 ==

== ENCOUNTER 2023-10-14 13:15 | Emergency (ER) | payer MEDICARE, SELFPAY ==
[2023-10-14 13:15] VITALS: BP 141/83; PULSE 74; RESP 18; TEMP 36.6; O2SAT 98
--- NOTE | 2023-10-14 13:39 | RAD_ITS ---
STUDY: X-RAY - RIGHT HUMERUS REASON FOR EXAM: Female, 88 years old. Pain following a fall. TECHNIQUE: 2 view(s) of the humerus. COMPARISON: None. FINDINGS: Impacted nondisplaced fracture of the surgical neck of the humerus. Soft tissue swelling. RAD/Humerus min 2 Views IMPRESSION: Impacted nondisplaced fracture of the proximal surgical neck of the humerus. Electronically Signed: Steve Spear MD at 14:06 EDT ,
--- NOTE | 2023-10-14 13:39 | EX.ED.GENINJ ---
HPI History of Present Illness Chief Complaint: Fall Detail of Chief Complaint: Fall with injury to right shoulder Informant: patient Onset/Context/Timing Onset: Today Narrative Narrative: Patient presents to the emergency department after sustaining a fall and injuring her right shoulder. Patient states that she had just cleaned up some toys when she stepped back and lost her balance and fell onto a loveseat with her right shoulder. Patient then was having hard time getting up so EMS came to assist and put her in a sling. She is right-hand dominant. She denies striking her head or loss consciousness. She denies neck pain or any other injuries. She is not anticoagulated. [facility] Medical History Asthma GERD (gastroesophageal reflux disease) Nonischemic cardiomyopathy Nonobstructive atherosclerosis of coronary artery Home Medications albuterol sulfate 90 mcg/actuation aerosol inhaler (Proventil HFA) 2 puff inhalation Q6H PRN Sob &/Or Wheezing 05/04/19 [History Last Taken Unknown] fluticasone 250 mcg-salmeterol 50 mcg/dose blistr powdr for inhalation (Advair Diskus) 1 inh inhalation BID 05/04/19 [History Last Taken Unknown] losartan 25 mg tablet 25 mg PO DAILY 05/04/19 [History Last Taken 10/15/19] omeprazole 20 mg capsule,delayed release 20 mg PO DAILY 05/04/19 [History Last Taken 10/15/19] albuterol sulfate 1.25 mg/3 mL solution for nebulization 1.25 mg inhalation Q6H PRN Sob &/Or Wheezing 09/08/19 [History Last Taken 10/15/19] aspirin 81 mg tablet,delayed release (Adult Aspirin Regimen) 81 mg PO DAILY 12/24/19 [History Last Taken Unknown] atorvastatin 40 mg tablet (Lipitor) 40 mg PO DAILY #90 tabs 10/05/22 [Rx Last Taken Unknown] carvedilol 12.5 mg tablet 12.5 mg PO BID This is a dose increase #180 tabs 10/26/22 [Rx Last Taken Unknown] furosemide 40 mg tablet 40 mg PO BID #180 tabs 01/04/23 [Rx Last Taken Unknown] oxycodone-acetaminophen 5 mg-325 mg tablet (Percocet) 1 tab PO Q8H PRN pain 3 days #15 tabs 10/14/23 [Rx Last Taken Unknown] Allergy/AdvReac Type Severity Reaction Status Date / Time azithromycin [From Zithromax] Allergy Intermediate Diarrhea Verified 10/14/23 13:18 codeine Allergy Intermediate Unknown Verified 10/14/23 13:18 Family History Father Heart disease Surgical History History of arthroscopic knee surgery History of section History of hand surgery History of implantable cardiac defibrillator (ICD) (10/15/19) History of left heart catheterization (07/02/11) History of open reduction and internal fixation (ORIF) procedure Social History Smoking Status: Never smoker alcohol intake: never substance use type: does not use caffeine: Yes Type: coffee Number of servings: 2 ROS ROS ED Review of Systems ROS Unobtainable: other Constitutional Constitutional ED: Reports lethargy; Denies chills, fever(s), sweats or weight loss Eyes Eyes: Denies blurry vision, change in vision or diplopia ENT ENT ED: Denies rhinorrhea or sore throat Cardiovascular Cardiovascular: Denies chest pain, orthopnea or racing heartbeat Respiratory/Chest Respiratory/Chest: Denies cough, dyspnea, dyspnea on exertion, orthopnea or sputum Gastrointestinal Gastrointestinal: Denies abdominal pain, diarrhea, nausea or vomiting Genitourinary Genitourinary ED: Denies dysuria, hematuria or urinary frequency Musculoskeletal Musculoskeletal: Reports other Details: Right arm/shoulder pain ; Denies arthralgias, back pain, myalgias or neck pain Integumentary Denies abscess, Abrasions or rash Neurologic Neurologic: Denies headache(s) or weakness Psychiatric Psychiatric: Denies anxiety, depression or suicidal thoughts Endocrine Endocrinology: Denies polydipsia, polyphagia or polyuria Hematologic/Lymphatic Hematologic/Lymphatic: Denies easy bleeding, easy bruising or lymphadenopathy Allergic/Immunologic Allergic/Immunologic ED: Denies mouth swelling, tongue swelling or urticaria EXAM Physical Exam Const Vital Signs: 10/14/23 13:15 10/14/23 13:40 Temperature 97.8 F Temperature Source Temporal Pulse Rate 74 Respiratory Rate 18 Respiratory Effort Normal Blood Pressure 141/83 H Blood Pressure Mean 102 Pulse Ox 98 Oxygen Delivery Method Room Air Positive well nourished and well developed General Appearance ED: well developed and NAD HEENT Reports TM's clear and moist mucous membranes normocephalic and atraumatic; Negative for trauma or tenderness Tympanic Membrane ED: Yes TM's clear Eyes PERRL and EOMs intact bilaterally General Eye ED: Negative for pale conjunctiva or scleral icterus Neck no lymphadenopathy, supple and no JVD General: Negative for tenderness Chest Wall inspection of chest normal and palpation of chest normal Chest: Negative for tenderness Resp normal respiratory effort and clear to auscultation bilaterally Effort and Inspection: Negative for respiratory distress or pain with movement Auscultation: Negative for rhonchi, wheezes or diminished lung sounds Cardio regular rate, regular rhythm, S1 normal heart sound, S2 normal heart sound and no murmurs Peripheral Pulses: pulses 2+ throughout GI normal to inspection, nondistended, normoactive bowel sounds, soft to palpation, non-tender, non-distended and no masses Back/Spine no CVA tenderness and no thoracic nor lumbar tenderness Extremity normal to inspection Extremity Narrative: Right shoulder-patient with tenderness palpation over the area of the glenohumeral joint and proximal humerus. No sulcus sign or obvious deformity. Neurovascular intact distally. Limited range of motion secondary to pain. General Extremety ED: Negative for edema General Extremity: Negative for edema Neuro oriented x3, CN's II-XII intact bilaterally, no sensory deficits noted and gait normal Sensorium / Orientation: awake, alert, oriented to person, oriented to place and oriented to time Motor Exam: strength 5/5 throughout and strength abnormal Psych mental status grossly normal Skin no rashes or lesions noted and no wounds MDM MDM MDM Narrative Medical decision making narrative: Patient presents after a fall with injury to the right shoulder. No other evidence of trauma. Patient actually fell onto loveseat with her arm and then to the floor but did not hit her head and she denies any neck pain. X-rays of the right humerus obtained showed an impacted nondisplaced fracture of the proximal surgical neck of the humerus. Patient presented to the ER with a sling that EMS had given her and she will continue with that. Will refer to orthopedics for follow-up. Will start on Percocet for pain. She is advised to use a stool softener daily while taking pain medication and to take the pain medication with food. Lab Data Attestation: I reviewed the patient's lab results. Radiography Diagnostic Testing: Clinical Impression(s) from Imaging Studies Humerus X-Ray 10/14/23 13:39 IMPRESSION: Impacted nondisplaced fracture of the proximal surgical neck of the humerus. Electronically Signed: Steve Spear MD at 14:06 EDT , 2 view x-rays of the right humerus obtained interpreted by myself as fracture of the neck of the humerus is impacted. Radiology in agreement. Discharge Plan Triage Chief Complaint: Fall ED Provider: Willie Disla Dx/Rx/DC Orders Clinical Impression: Closed right humeral fracture Instructions: Understanding a Humerus Fracture, ED Fracture, Upper Extremity Prescriptions: New oxycodone-acetaminophen [Percocet] 5-325 mg tablet 1 tab PO Q8H PRN (Reason: pain) 3 Days Qty: 15 0RF No Action albuterol sulfate [Proventil HFA] 90 mcg/actuation HFA aerosol inhaler 2 puff INHALATION Q6H PRN (Reason: Sob &/Or Wheezing) omeprazole 20 mg capsule,delayed release(DR/EC) 20 mg PO DAILY fluticasone propion-salmeterol [Advair Diskus] 250-50 mcg/dose blister with device 1 inh INHALATION BID losartan 25 mg tablet 25 mg PO DAILY aspirin [Adult Aspirin Regimen] 81 mg tablet,delayed release (DR/EC) 81 mg PO DAILY albuterol sulfate 1.25 mg/3 mL solution for nebulization 1.25 mg INHALATION Q6H PRN (Reason: Sob &/Or Wheezing) atorvastatin [Lipitor] 40 mg tablet 40 mg PO DAILY Qty: 90 3RF carvedilol 12.5 mg tablet 12.5 mg PO BID Qty: 180 3RF furosemide 40 mg tablet 40 mg PO BID Qty: 180 3RF Primary Care Provider: Sj Guan Referrals: Sj Guan MD [Primary Care Provider] - Chico Franco MD [Med Staff - Active Staff] - 3-5 Days Disposition Disposition: Home, Self Care
[2023-10-14 14:15] VITALS: BP 145/63; PULSE 65; RESP 12; TEMP 36.5; O2SAT 99
[2023-10-14] MEDS: Oxycodone/Apap 5/325 Tablet PO (15:03)
== END 2023-10-14 15:13 | disposition home or self-care (01) ==
PROVIDERS: Emergency Provider Emergency Medicine; PCP Family Medicine; Visit Provider Emergency Medicine
DX: S42.214A Unspecified nondisplaced fracture of surgical neck of right humerus, initial encounter for closed fracture (principal); I42.8 Other cardiomyopathies; W18.39XA Other fall on same level, initial encounter; J45.909 Unspecified asthma, uncomplicated; Z79.51 Long term (current) use of inhaled steroids; K21.9 Gastro-esophageal reflux disease without esophagitis; Z79.899 Other long term (current) drug therapy; I25.10 Atherosclerotic heart disease of native coronary artery without angina pectoris; Z95.810 Presence of automatic (implantable) cardiac defibrillator
CPT/HCPCS: 73060; 99282

== ENCOUNTER → 2024-04-10 | Outpatient (CLI) | payer MEDICARE, SELFPAY ==
[2024-04-10 12:22] LABS: Absolute Lymphocyte Count 2.23 X10^3/uL (0.83-4.51); Absolute Neutrophil Count 4.3 X10^3/uL (2.0-7.7); Basophil# 0.08 X10^3/uL; Eosinophil# 0.41 X10^3/uL; Eosinophils% 5.3 % (0-5); Hematocrit 35.5 % (37-47); Hemoglobin 11.3 g/dL (12.0-15.0); Lymphocyte # 2.23 X10^3/ul (0.83-4.51); Lymphocyte % 28.8 % (19-41); Mean Corp Hgb Conc 31.8 g/dL (32-36); Mean Corpuscular Hgb 28.6 pg (27.0-32.0); Mean Corpuscular Volume 89.9 fL (81-99); Monocyte# 0.64 X10^3/uL; Monocyte% 8.3 % (0-10); NRBC Flagged by Analyzer 0 % (0-5); Neutrophil # 4.33 X10^3/uL (2.7-7.7); Neutrophil % 56.1 % (47-70); Platelet Count 173 K/mm3 (150-450); RBC Distribution Width CV 14.4 % (11.6-14.6); RBC Distribution Width SD 47.5 fl (35.1-43.9); Red Blood Count 3.95 M/mm3 (4.2-5.4); White Blood Count 7.7 K/mm3 (4.4-11.0)
[2024-04-10 13:34] LABS: AST(SGOT) 20 U/L (15-37); Alanine Aminotransfer ALT/SGPT 18 U/L (13-56); Albumin, Serum 3.5 g/dL (3.2-5.0); Alkaline Phosphatase 131 U/L (45-117); Anion Gap 11 (5-15); BUN 19 mg/dL (7-18); Calcium,Total 9.2 mg/dL (8.5-10.1); Chloride 102 mmol/L (98-107); Creatinine, Serum 0.73 mg/dL (0.55-1.02); EST Glomerular Filtration Rate 80 mL/min (>60); Est Glom Filt Rate - Afr Amer 96 mL/min (>60); Globulin 3.5 g/dL (2.2-4.2); Glucose 107 mg/dL (74-106); Magnesium 1.8 mg/dL (1.6-2.6); Sodium Level 134 mmol/L (136-145)
== END | disposition home or self-care (01) ==
LOC: LAB 11:00
PROVIDERS: PCP Family Medicine; Referring Provider Nurse Practitioner Family; Visit Provider Nurse Practitioner Family
DX: I42.8 Other cardiomyopathies (principal); I47.29 Other ventricular tachycardia; Z95.810 Presence of automatic (implantable) cardiac defibrillator; I25.10 Atherosclerotic heart disease of native coronary artery without angina pectoris
CPT/HCPCS: 36415; 80053; 83735; 84439; 84443; 85025

== ENCOUNTER 2025-04-12 17:55 | Emergency (ER) | payer MEDICARE, SELFPAY ==
[2025-04-12 17:56] VITALS: BP 141/66; PULSE 71; RESP 16; TEMP 36.6; O2SAT 99
--- NOTE | 2025-04-12 17:58 | RAD_ITS ---
PROCEDURE: HAND MIN 3 VIEWS 04/12/2025 REASON FOR EXAM: FALL TECHNIQUE: Procedure Code: ANDREA Modality: DX Procedure: HAND MIN 3 VIEWS Laterality: Right. COMPARISON: None. FINDINGS: Bones: Osteopenia. Acute mildly displaced fractures of the 1st, 2nd, 3rd, 4th and 5th metacarpal shafts. Joints: Osteoarthritis changes of joint space narrowing, sclerosis Soft tissues: Soft tissue swelling. Vascular atherosclerotic calcifications. RAD/Hand Min 3 Views IMPRESSION: Acute mildly displaced fractures of the 5 metacarpals. Reading Location: [id number]
[2025-04-12 20:11] VITALS: BMI 24.0
--- NOTE | 2025-04-12 21:05 | EX.ED.UPPERE ---
HPI History of Present Illness Chief Complaint: Upper Extremity Injury Informant: patient and family Narrative Narrative: 89-year-old female [id number] was gardening and stumbled and fell onto her right hand and has had significant discomfort in it since this started earlier today. No other injuries. No prodromal symptoms. [facility] Medical History NSVT (nonsustained ventricular tachycardia) Right humeral fracture (~09/2023) Nonobstructive atherosclerosis of coronary artery Nonischemic cardiomyopathy Asthma GERD (gastroesophageal reflux disease) Home Medications ?Medication ?Instructions ?Recorded ?Last Taken ?Type albuterol sulfate 90 mcg/actuation 2 puff inhalation Q6H PRN Sob &/Or 05/04/19 Unknown History aerosol inhaler (Proventil HFA) Wheezing fluticasone 250 mcg-salmeterol 50 1 inh inhalation BID 05/04/19 Unknown History mcg/dose blistr powdr for inhalation (Advair Diskus) losartan 25 mg tablet 25 mg PO DAILY 05/04/19 10/15/19 History omeprazole 20 mg capsule,delayed 20 mg PO DAILY 05/04/19 10/15/19 History release albuterol sulfate 1.25 mg/3 mL 1.25 mg inhalation Q6H PRN Sob 09/08/19 10/15/19 History solution for nebulization &/Or Wheezing aspirin 81 mg tablet,delayed 81 mg PO DAILY 12/24/19 Unknown History release (Adult Aspirin Regimen) acetaminophen 325 mg tablet 325 mg PO ONCE PRN 12/31/23 Unknown History furosemide 40 mg tablet 40 mg PO DAILY #90 tabs 03/25/24 Unknown Rx atorvastatin 40 mg tablet (Lipitor) 40 mg PO DAILY #90 tabs 12/22/24 Unknown Rx carvedilol 12.5 mg tablet 12.5 mg PO BID #180 tabs 12/30/24 Unknown Rx spironolactone 25 mg tablet 25 mg PO DAILY #30 tabs 02/11/25 Unknown Rx Allergy/AdvReac Type Severity Reaction Status Date / Time azithromycin (From Zithromax) Allergy Intermediate Diarrhea Verified 04/12/25 17:56 codeine Allergy Intermediate Unknown Verified 04/12/25 17:56 Family History Father Heart disease Surgical History History of left heart catheterization (07/02/11) History of implantable cardiac defibrillator (ICD) (10/15/19) History of section History of hand surgery History of open reduction and internal fixation (ORIF) procedure History of arthroscopic knee surgery Social History Smoking Status: Never smoker alcohol intake: never substance use type: does not use caffeine: Yes Type: coffee Number of servings: 2 ROS ROS ED Constitutional Constitutional ED: Denies chills or fever(s) Musculoskeletal Musculoskeletal: Reports extremity pain; Denies neck pain Integumentary Denies Abrasions, rash or wounds Neurologic Neurologic: Denies paresthesias or weakness EXAM Physical Exam Const Vital Signs: 04/12/25 17:56 Temperature 97.9 F Temperature Source Temporal Pulse Rate 71 Respiratory Rate 16 Blood Pressure 141/66 H Blood Pressure Mean 91 Pulse Ox 99 Oxygen Delivery Method Room Air Positive well nourished and well developed General Appearance ED: well developed and NAD Neck full ROM and supple Back/Spine normal ROM and normal to inspection Extremity Extremity Narrative: Pain, swelling, tenderness throughout the dorsum of the right hand. Limited range of motion but she is able to move all of her fingers. Extensors, FDP, FDS intact all digits. No tenderness at the distal radius and ulna or more proximal to this. No issues moving the elbow or the shoulder, although she does have limited abduction but that is chronic according to her and family. Limited range of motion at the wrist, complaining mostly of pain more distal end of the hand. No lacerations. Neuro oriented x3, no focal motor deficits and no sensory deficits noted Sensorium / Orientation: alert Psych mental status grossly normal and thought process normal Skin no wounds Rashes: no rashes MDM MDM MDM Narrative Medical decision making narrative: Three-view x-ray series of the right hand my interpretation shows minimally if any displaced fractures of the first metacarpal as well as metacarpals 3-5. According to radiology, the second metacarpal is involved as well although on the imaging I am not able to find it. Regardless she was splinted and is neurovascular intact distally, given some Tylenol for pain and will follow-up with plastics in the next 1 to 2 weeks. Radiography Diagnostic Testing: Clinical Impression(s) from Imaging Studies Hand X-Ray 04/12/25 17:58 IMPRESSION: Acute mildly displaced fractures of the 5 metacarpals. Reading Location: [facility] Procedures Upper Extremity Splints Upper Extremity Splint: Orthoglass (AP short arm splint from the PIP joints of the fingers, wrapped into a thumb spica, into the proximal third of the forearm. Neurovascular intact distally after placement.) and Thumb Spica (AP short arm) Splint Fabrication: Fabricated Location: Right Discharge Plan Triage Chief Complaint: Upper Extremity Injury ED Provider: Malachi Moscoso Dx/Rx/DC Orders Clinical Impression: Closed fracture of metacarpal bone of right hand, Fall due to stumbling Instructions: ED Closed Hand Fracture (Adult), ED Fiberglass Splint Care Prescriptions: No Action albuterol sulfate [Proventil HFA] 90 mcg/actuation HFA aerosol inhaler 2 puff INHALATION Q6H PRN (Reason: Sob &/Or Wheezing) omeprazole 20 mg capsule,delayed release(DR/EC) 20 mg PO DAILY fluticasone propion-salmeterol [Advair Diskus] 250-50 mcg/dose blister with device 1 inh INHALATION BID losartan 25 mg tablet 25 mg PO DAILY aspirin [Adult Aspirin Regimen] 81 mg tablet,delayed release (DR/EC) 81 mg PO DAILY albuterol sulfate 1.25 mg/3 mL solution for nebulization 1.25 mg INHALATION Q6H PRN (Reason: Sob &/Or Wheezing) acetaminophen 325 mg tablet 325 mg PO ONCE PRN furosemide 40 mg tablet 40 mg PO DAILY Qty: 90 3RF atorvastatin [Lipitor] 40 mg tablet 40 mg PO DAILY Qty: 90 3RF carvedilol 12.5 mg tablet 12.5 mg PO BID Qty: 180 3RF spironolactone 25 mg tablet 25 mg PO DAILY Qty: 30 11RF Primary Care Provider: Sj Guan Referrals: Joel Esuqivel MD [Med Staff - Active Staff] - As soon as possible Print Language: Greenlandic Disposition Disposition: Home, Self Care
[2025-04-12 21:24] VITALS: BP 135/75; PULSE 77; RESP 18; TEMP 36.6; O2SAT 98
== END 2025-04-12 21:25 | disposition home or self-care (01) ==
PROVIDERS: Emergency Provider Emergency Medicine; PCP Family Medicine; Visit Provider Emergency Medicine
DX: S62.201A Unspecified fracture of first metacarpal bone, right hand, initial encounter for closed fracture (principal); I25.10 Atherosclerotic heart disease of native coronary artery without angina pectoris; Y93.H2 Activity, gardening and landscaping; W18.39XA Other fall on same level, initial encounter; Y92.89 Other specified places as the place of occurrence of the external cause; Z79.51 Long term (current) use of inhaled steroids; K21.9 Gastro-esophageal reflux disease without esophagitis; Z79.899 Other long term (current) drug therapy; Z95.810 Presence of automatic (implantable) cardiac defibrillator; J45.909 Unspecified asthma, uncomplicated
CPT/HCPCS: 29130; 73130; 99282

== ENCOUNTER 2025-06-15 11:00 | Outpatient (RCR) | payer MEDICARE, SELFPAY ==
--- NOTE | 2025-04-29 15:55 | HP.OTEVAL ---
Patient's Visit Information Visit Information Visit Information: CINTIA BUNCH is a 89 year old F, referred to Occupational Therapy by Dr. Joel Esquivel MD, with a diagnosis of right hand fx.. Date of Evaluation: 04/29/25 Occupational Therapist: Jaleesa Ruvalcaba, OTR/Romeo, CHT Subjective Subjective: This 89 year old female was seen for OT eval with dx of a right hand closed fx. pt had a fall on 04/15/25 while out cutting down [place]- had cast placed on 04/20/25 pt arrives today to work on edema and ROM of digits and thumb to decrease joint stiffness distal joints ( PIP and DIPs) son is with pt today- pt is [place] pt is right handed and at this time is limited with all ADLs and IADLs. pt would benefit from skilled OT services Pain right hand: Current Pain Intensity: 0 Pain Intensity Range: 0 and 2 ROM ROM Comments: pt demo good PIP and DIP ROM within confines of her cast PIPs at 50* DIP at 45* fingers have bruising with mild swelling Sensation Sensation Comments: denies numbness or tingling Quick DASH-Disab of Arm,Shoulder& Hand Quick DASH Score: 61.3625 Goals Goal:ROM equal to unaffected hand: Yes Goal:Ferryboat Pilot/Pinch strength at least 75% of unaffected hand: Yes Comment: will not initiate until week 6 or when advises otherwise Goal:No pain with affected hand use: Yes Goal:PIP Circumferences equal to unaffected hand: Yes Goal:Full use of affected hand in daily activities including work: Yes Rehabilitation General Assessment: pt arrives with cast on. ( 1 weeks and 2 days from casting). pt demo with newly healing structures that are requiring stabilization, but due to high risk of distal joint stiffness pt is demo need for skilled OT services 1-2x week for 8 weeks to decrease complications. Today therapist ed. pt and pts son on elevation to decrease swelling, and ed, pt on ROM of DIP and PIPJ. pt demo understanding- pt is actually moving joints well- swollen but son states she is not keeping her arm elevated much. Rehabilitation Potential: Good Anticipated Interventions Anticipated Interventions: A/AAROM/PROM, Strengthening, Edema Control, Triggerpoint Release, Modalities, Orthoses, Joint Protection/Energy Conservation, Ergonomic Education, Fine Motor Coord/Matt, Education re assistive Equipment, Education re Diagnosis and Home Program Visit Plan Frequency: 1-2x /Week Duration: 6 Weeks TEXT: Thank you for the opportunity to evaluate your patient. For Medicare and Medicare HMO plans, please review the plan of care and approve it. It will need to be FAXED BACK to us at [phone] for Medicare purposes. Please let me know if there are questions or concerns regarding this plan of care. Physician Signature: Date:
--- NOTE | 2025-06-15 11:16 | HP.OTDCSUM ---
Discharge Summary D/C Summary: It has been my pleasure to treat CINTIA BUNCH under orders from Dr. Joel Esquivel MD, for the diagnosis of right hand fx. for a total of 6 visit(s). Please see the following information for a summary of their discharge status. Overall Improvement % Improvement: 70 Objective Objective/Function: pt demo full fist and full finger ext. 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 states she is IND with bathing/dressing pt has done well with her recovery- therapist has ed. pt and pts son she will take full year to recover and she will have pain from time to time. therapist ed. pt to use as she tolerates it. Pt denies pain just "soreness" pt agrees with D/C. Goals Patient Goals: Regain Mobility, Improve Fine Motor Skills, Use Hand/Wrist/Arm Normally Again and Be More Independent in ADLS Goal:ROM equal to unaffected hand: Yes Goal Progress: Goal Met Goal:Sfdc Solution Architect/Pinch strength at least 75% of unaffected hand: Yes Goal Progress: Goal Met Goal:No pain with affected hand use: Yes Goal Progress: Goal Met Goal:PIP Circumferences equal to unaffected hand: Yes Goal:Full use of affected hand in daily activities including work: Yes Goal Progress: Goal Met Plan Plan: d/c note D/C Information Discharge Comments: pt has progressed well in therapy. pt has met goals and will be d/c. pt agrees to use right hand as tolerated. Pt reports she is IND with bathing/dressing and performing some of meal prep tasks. pt lives with son who will help as she needed. pt agrees with D/C. d/c sentence: If there are questions or concerns regarding this patient's occupational therapy, please fell free to call me at [phone]. Thank you for the referral of this patient. Sincerely, Jaleesa Ruvalcaba, OTR/L, CHT
== END 2025-06-15 19:00 | disposition home or self-care (01) ==
LOC: OT 11:00
PROVIDERS: PCP Family Medicine; Referring Provider Surgery Plastic and Reconstructive Surgery; Visit Provider Surgery Plastic and Reconstructive Surgery
DX: S62.91XD Unspecified fracture of right hand, subsequent encounter for fracture with routine healing (principal)
CPT/HCPCS: 97110; 97140; 97166; 97530